=== PATIENT | female | born 1970 ===

== ENCOUNTER → 2022-01-05 | Day surgery (SDC) | payer OTHER ==
[~2022-01-05] VITALS: Ht 149.9 cm; Wt 59.0 kg
== END | disposition home or self-care (01) ==
LOC: ADM 01-03 12:45 → CIR.AMB 10:45
PROVIDERS: ATTEND Obstetrics & Gynecology
DX: D25.0 Submucous leiomyoma of uterus (principal)

== ENCOUNTER 2022-11-02 06:20 | Day surgery (SDC) | payer OTHER | END 2022-11-02 15:45 | disposition home or self-care (01) | LOC: CIR.AMB 06:20 | PROVIDERS: ATTEND Obstetrics & Gynecology | DX: N87.9 Dysplasia of cervix uteri, unspecified (principal); N93.8 Other specified abnormal uterine and vaginal bleeding ==